=== PATIENT | female | born 1975 | race Caucasian/White ===

== ENCOUNTER 2023-08-06 17:47 | Emergency (ER) | payer SELFPAY ==
[~2023-08-06] VITALS: Ht 149.9 cm; Wt 58.5 kg
[2023-08-06 18:05] VITALS: TEMP 98.2; O2SAT 100
[2023-08-06 20:15] VITALS: BP 133/47; PULSE 73; RESP 16
[2023-08-06] MEDS: PROCHLORPERAZINE 10MG/2ML VIAL IM ONE (20:15)
[2023-08-06] MEDS: KETOROLAC 30MG/ML VIAL IM ONE (20:15)
[2023-08-06] MEDS ORDERED: IBUP-2029 MT (21:46)
[2023-08-06] MEDS ORDERED: PROC-27 MT (21:46)
== END 2023-08-06 22:52 | disposition home or self-care (01) ==
LOC: ER 17:47
DX: R51.9 Headache, unspecified (principal); R11.10 Vomiting, unspecified
CPT/HCPCS: 99285; 70450; 81025; 96372; J1885; J0780